=== PATIENT | male | born 1930 | race Caucasian/White ===

== ENCOUNTER 2019-12-03 10:04 | Emergency (ER) | payer MEDICARE, OTHER ==
[~2019-12-03] VITALS: Ht 175 cm; Wt 64.4 kg
[2019-12-03 10:05] VITALS: BP 147/85
== END 2019-12-03 10:17 | disposition home or self-care (01) ==
LOC: EDUNIT# 10:04 → ER FS 10:05
DX: S81.812D Laceration without foreign body, left lower leg, subsequent encounter (principal); X58.XXXD Exposure to other specified factors, subsequent encounter